=== PATIENT | female | born 1945 | race Two or more races ===

== ENCOUNTER → 2020-08-20 08:00 | Outpatient (CLI) | payer OTHER ==
[~2020-08-20 08:00] MED LIST: ADULT LOW DOSE81 M1 PO; COZAAR100 MG PO; FENOFIBRATE134 MG PO; LASIX20 MG PO; TOPROL XL200 MG PO
== END | disposition home or self-care (01) ==
LOC: ADM 07:00 → LAB 08:00 → EDSTATUS 08-27 07:00 → CIR.AMB 08-27 07:00
PROVIDERS: ATTEND Obstetrics & Gynecology Gynecology
DX: N81.11 Cystocele, midline (principal); N81.5 Vaginal enterocele; N81.84 Pelvic muscle wasting; N81.82 Incompetence or weakening of pubocervical tissue; Z20.822 Contact with and (suspected) exposure to COVID-19; Z20.828 Contact with and (suspected) exposure to other viral communicable diseases